=== PATIENT | female | born 1990 | race Caucasian/White ===

== ENCOUNTER 2020-08-12 18:53 | Emergency (ER) | payer OTHER, SELFPAY ==
[2020-08-12 18:57] VITALS: BP 159/69; PULSE 89; RESP 16; TEMP 37.2; O2SAT 98
--- NOTE | 2020-08-12 19:13 | ED.EAR ---
HPI - Ear Problem General Chief complaint: Ear Stated complaint: ears & watery eyes Time Seen by Provider: 08/12/20 19:13 Source: patient History of Present Illness HPI Narrative: Patient presents with right ear pain and itchy watery eyes. Patient states she is scheduled to see an terrazzo tile setter as soon as she is able to. Patient states she is waiting for an appointment with the terrazzo tile setter. Patient states she takes loratadine daily for seasonal allergies. Denies any cough no fever no shortness of breath. MD Complaint: ear pain Related Data Home Medications Medication Instructions Recorded Confirmed amitriptyline 50 mg PO HS 11/13/19 08/12/20 hydroxyzine HCl 25 mg PO QID PRN 11/13/19 08/12/20 cholestyramine (with sugar) 4 g PO BID 08/12/20 08/12/20 dicyclomine 10 mg PO QID 08/12/20 08/12/20 loratadine 10 mg PO DAILY 08/12/20 08/12/20 omeprazole 20 mg PO DAILY 08/12/20 08/12/20 Allergies Allergy/AdvReac Type Severity Reaction Status Date / Time No Known Allergies Allergy Verified 08/12/20 19:06 Review of Systems Review of Systems: Narrative: CONSTITUTIONAL: Denies fever, chills, or sweats. EYES: Denies visual changes, redness, or discharge. ENT: Denies rhinorrhea, congestion, sore throat, or otalgia. Right ear pain and watery eyes CARDIOVASCULAR: Denies chest pain, palpitations, or edema. RESPIRATORY: Denies cough or dyspnea. GASTROINTESTINAL: Denies abdominal pain, nausea, vomiting, or diarrhea. GENITOURINARY: Denies dysuria or hematuria. SKIN: Denies rash or itching. MUSCULOSKELETAL: Denies back pain, joint pain, or myalgia. NEUROLOGIC: Denies headache, numbness, or weakness. PSYCHIATRIC: Denies anxiety or depression. PMFSH Comments At time of signature, agree with nursing past medical, surgical, social and family history. There is no relevant family history pertinent to the presenting complaint Exam Narrative: Exam Narrative: GENERAL: Well-appearing, well-nourished, and in no acute distress. HEAD: Normocephalic, atraumatic. EYES: PERRLA and EOMI. ENT: Nares clear, no rhinorrhea or epistaxis. Mucous membranes moist. Right TM dull with moderate erythremia to canal NECK: Supple. CHEST: Clear to auscultation. No respiratory distress. HEART: Regular rate and rhythm. No murmur heard. Normal peripheral pulses. ABDOMEN: Soft, nontender, nondistended, normal active bowel sounds. EXTREMITIES: Normal range of motion. No edema. SKIN: Warm, dry, no rash. NEURO: No focal deficits. Alert and oriented x3. Coleman Coma Scale Eye Opening: Spontaneous 4 Coleman Coma Scale Motor: Obeys Commands 6 Laisha Coma Scale Verbal: Oriented 5 Coleman Coma Scale Total 15 Course Vital Signs Vital signs: Vital Signs Temperature 37.2 C 08/12/20 18:57 Pulse Rate 89 08/12/20 18:57 Respiratory Rate 16 08/12/20 18:57 Blood Pressure 159/69 H 08/12/20 18:57 Pulse Oximetry 98 08/12/20 18:57 Temperature 37.2 C 08/12/20 18:57 Pulse Rate 89 08/12/20 18:57 Respiratory Rate 16 08/12/20 18:57 Blood Pressure 159/69 H 08/12/20 18:57 Pulse Oximetry 98 08/12/20 18:57 Please [facility] schedule a followup visit with your personal physician for further evaluation and treatment. Including recheck and discussion of your blood pressure. If your symptoms persist, change or worsen significantly before you can contact your personal physician then please, without delay, go to the emergency department for further evaluation Medical Decision Making Differential Diagnosis Differential Diagnosis: Otitis media, seasonal allergies, otitis externa Vital Signs Vital Signs: Vital Signs Temperature 37.2 C 08/12/20 18:57 Pulse Rate 89 08/12/20 18:57 Respiratory Rate 16 08/12/20 18:57 Blood Pressure 159/69 H 08/12/20 18:57 Pulse Oximetry 98 08/12/20 18:57 Temperature 37.2 C 08/12/20 18:57 Pulse Rate 89 08/12/20 18:57 Respiratory Rate 16 08/12/20 18:57 Blood Pressure 159/69 H 08/12/20 18:57 Pulse Oximetr
== END 2020-08-12 19:27 | disposition home or self-care (01) ==
PROVIDERS: Emergency Provider Nurse Practitioner Family; PCP Family Medicine
DX: H66.91 Otitis media, unspecified, right ear (principal); H57.89 Other specified disorders of eye and adnexa; I10 Essential (primary) hypertension; K21.9 Gastro-esophageal reflux disease without esophagitis; F41.9 Anxiety disorder, unspecified
CPT/HCPCS: 99213; G0463

== ENCOUNTER 2023-08-12 16:16 | Emergency (ER) | payer OTHER, SELFPAY ==
[2023-08-12 16:29] VITALS: BP 146/83; PULSE 103; RESP 16; TEMP 36.9; O2SAT 98
--- NOTE | 2023-08-12 16:36 | ED.URI ---
HPI - URI/Sore Throat General Chief Complaint: Upper Respiratory Infection Stated Complaint: respiratory issues Source: patient and RN notes reviewed History of Present Illness HPI Narrative: 32 yo F presents to urgent care with complaints of runny nose, congestion, and cough times 3-4 days. Pt denies any chest pain, SOB, N/V/D, abdominal pain, sore throat, or ALBERTS. Pt has been taking Claritin at home. Related Data Home Medications Medication Instructions Recorded Confirmed amitriptyline 50 mg tablet 50 mg PO HS 11/13/19 08/12/20 hydroxyzine HCl 25 mg tablet 25 mg PO QID PRN Anxiety 11/13/19 08/12/20 cholestyramine (with sugar) 4 gram 4 g PO BID 08/12/20 08/12/20 powder for susp in a packet dicyclomine 10 mg capsule 10 mg PO QID 08/12/20 08/12/20 loratadine 10 mg capsule 10 mg PO DAILY 08/12/20 08/12/20 omeprazole 20 mg tablet,delayed 20 mg PO DAILY 08/12/20 08/12/20 release Allergies Allergy/AdvReac Type Severity Reaction Status Date / Time No Known Allergies Allergy Verified 08/12/20 19:06 Review of Systems Review of Systems: Pertinent positives and pertinent negatives per HPI. PMFSH Comments At the time of my signature, I reviewed and agree with the nursing past medical, surgical, social, and family history. There is no relevant family history pertinent to the patient complaint. Exam Narrative: GENERAL: This is a well-nourished, well-developed patient, in no apparent distress. HEAD: normocephalic, atraumatic. EYES: Sclera clear/white. Vision is grossly intact. EARS: External ears normal, auditory canals clear and without drainage, TMs normal without perforation. Hearing grossly intact. NOSE: External nose normal with no obvious nasal discharge, nares without redness, no rhinorrhea. THROAT: Mucous membranes moist, posterior pharynx clear. NECK: Neck supple, non-tender without lymphadenopathy, masses or thyromegaly. CARDIOVASCULAR: Regular rate and rhythm without murmurs, gallops, or rubs. RESPIRATORY: Clear to auscultation. Breath sounds equal bilaterally. No wheezes, rales, or rhonchi. GASTROINTESTINAL: Abdomen soft, non-tender, nondistended. Bowel sounds are active. No hepato-splenomegaly, or palpable masses. No guarding. SKIN: warm, intact with no suspicious lesions or rash, good texture and turgor. NEURO: awake, alert, and oriented to person, place and time. There were no obvious focal neurologic abnormalities. EXTREMITIES: No clubbing, cyanosis, or edema. No joint tenderness, effusion, or edema noted. BACK: Nontender without deformity or crepitus. No flank tenderness. Course Course Level of Care: Express Care Visit Vital Signs Vital signs: Vital Signs Temperature 98.5 F 08/12/23 16:29 Pulse Rate 103 H 08/12/23 16:29 Respiratory Rate 16 08/12/23 16:29 Blood Pressure 146/83 H 08/12/23 16:29 Pulse Oximetry 98 08/12/23 16:29 Oxygen Delivery Room Air 08/12/23 16:29 Temperature 98.5 F 08/12/23 16:29 Pulse Rate 103 H 08/12/23 16:29 Respiratory Rate 16 08/12/23 16:29 Blood Pressure 146/83 H 08/12/23 16:29 Pulse Oximetry 98 08/12/23 16:29 Oxygen Delivery Room Air 08/12/23 16:29 Reviewed MDM - URI/Sore Throat MDM Narrative Medical decision making narrative: Viral illness may last between 7-12days; antibiotic is NOT recommended at this time. Recommend antihistamine such as Benadryl at night time and Claritin/Zyrtec/Carrie during the day. Increase your Vitamin C intake. Also, recommend symptomatic treatment includes: rest, fluids, increase humidity of the air at home with a humidifier in the bedroom. Recommend Acetaminophen or nonsteroidal anti-inflammatory agents(NSAIDs) as directed in the bottle to reduce fever and/pain/headache. Avoid smoking/second-hand smoke. Limit visits to areas with large crowds. Frequent hand washing or hand multimedia technician is one of the best ways to prevent spread of infection. Differential Diagnosis Differential diagnosis: Like
== END 2023-08-12 17:00 | disposition home or self-care (01) ==
PROVIDERS: Emergency Provider Nurse Practitioner Family; PCP Family Medicine
DX: J06.9 Acute upper respiratory infection, unspecified (principal); I10 Essential (primary) hypertension; K21.9 Gastro-esophageal reflux disease without esophagitis
CPT/HCPCS: 99202; G0463

== ENCOUNTER 2024-05-11 15:28 | Emergency (ER) | payer OTHER, SELFPAY ==
[2024-05-11 15:44] VITALS: BP 137/85; PULSE 87; RESP 16; TEMP 36.9; O2SAT 96
--- NOTE | 2024-05-11 15:53 | ED.EAR ---
HPI - Ear Problem General Chief complaint: Ear Stated complaint: Right Ear Pain Time Seen by Provider: 05/11/24 15:54 Source: patient, RN notes reviewed and old records reviewed Mode of arrival: ambulatory Limitations: no limitations History of Present Illness HPI Narrative: 33 year female presents to [facility] with complaints right ear pain for the past 4 days with no drainage noted from her ear. Patient reports that she has been swimming lately at [place]. Patient reports that she has been having some sinus pressure also. Patient reports that she has no drainage from her ear but has also had some dizziness and nausea with the ear pain.Patient reports that she has been taking Claritin and also some Tylenol and Ibuprofen for her discomfort. MD Complaint: ear pain Location: right ear Duration: constant Severity: moderate Discharge from ear: Reports no Treatment prior to arrival: oral analgesic and other (Claritin) Related Data Allergies Allergy/AdvReac Type Severity Reaction Status Date / Time No Known Allergies Allergy Verified 08/12/20 19:06 Review of Systems Review of Systems: CONSTITUTIONAL: Denies malaise, chills, sweats, or fever. EYES: Denies visual changes, redness, or discharge. ENT: Reports rhinorrhea, congestion,no sinus pain,positive for right otalgia and no sore throat. CARDIOVASCULAR: Denies chest pain, palpitations, or edema. RESPIRATORY: Reports no cough.? Denies dyspnea. GASTROINTESTINAL: Denies abdominal pain, occasional nausea, no vomiting, diarrhea SKIN: Denies rash or itching. MUSCULOSKELETAL: Denies myalgia. NEUROLOGIC: Denies headache. states some feeling of dizziness All systems reviewed & are unremarkable except as noted in HPI and below PMFSH Past Medical History Medical History Anxiety Fracture of right wrist GERD (gastroesophageal reflux disease) Hypertension UTI (urinary tract infection) Surgical History Surgical History History of placement of ear tubes Social History Social History Smoking status: Never smoker Alcohol intake: unknown Substance use type: does not use Gender identity (if verbalized by the patient): Female Comments At time of signature, agree with nursing past medical, surgical, social and family history. There is no relevant family history pertinent to the presenting complaint Exam Narrative: GENERAL: Well-appearing, well-nourished,obese and in no acute distress. HEAD: Normocephalic EYES: PERRLA, conjunctivae clear ENT: Nares clear, turbinates edematous and erythematous, clear discharge. Mucous membranes moist. TM pearly davis with dull light reflex bilaterally;Right ear canal red and excoriated and painful with tragal tenderness, Left Ear canal normal. Oropharynx erythematous without lesions. Tonsils not enlarged and without exudate, no drooling, no hoarseness, no trismus, uvula midline.some post nasal discharge. NECK: Supple. No lymphadenopathy CHEST: Clear to auscultation, breath sounds equal. No wheezing, rhonchi, rales, or stridor. No respiratory distress, speaks in full sentences.no cough,SAO2 96% on room air HEART: Regular rate and rhythm. No murmur heard. SKIN: Warm, dry, no rash. NEURO: Alert and oriented x3. PSYCH: Normal mood and affect Course Course Emergency Course: Patient is aware of diagnosis, understands and agrees to treatment plan.? Anticipatory guidance given.? Patient agrees to follow-up as directed and is aware of reasons to seek care at the emergency department. Portions of this record may have been created with voice recognition software Level of Care: Express Care Visit Vital Signs Vital signs: Vital Signs Temperature 36.9 C 05/11/24 15:44 Pulse Rate 87 05/11/24 15:44 Respiratory Rate 16 05/11/24 15:44
== END 2024-05-11 16:20 | disposition home or self-care (01) ==
PROVIDERS: Emergency Provider Registered Nurse
DX: H60.311 Diffuse otitis externa, right ear (principal); K21.9 Gastro-esophageal reflux disease without esophagitis; I10 Essential (primary) hypertension
CPT/HCPCS: 99213; G0463

== ENCOUNTER 2025-08-30 10:22 | Emergency (ER) | payer OTHER, SELFPAY ==
[2025-08-30 10:38] VITALS: BP 145/64; PULSE 75; RESP 16; TEMP 36.3; O2SAT 99
--- NOTE | 2025-08-30 10:59 | ED.URI ---
HPI - URI/Sore Throat General Chief Complaint: Upper Respiratory Infection Stated Complaint: Sinus Problem/Cough Time Seen by Provider: 08/30/25 11:00 Source: patient and RN notes reviewed Mode of arrival: ambulatory Limitations: no limitations History of Present Illness HPI Narrative: It is 34-year-old female presents concern for 4 day history of sinus drainage, cough, sneezing, general malaise. She reports she has been taking [id number] medication without relief. MD elicited complaint: cough and nasal congestion Related Data Home Medications ?Medication ?Instructions ?Recorded ?Confirmed ?Last Taken ?Type azelastine 137 mcg (0.1 %) nasal intranasal 08/30/25 Unknown History spray dulaglutide 1.5 mg/0.5 mL mg subcut 08/30/25 Unknown History subcutaneous pen injector (Trulicity) fluoxetine 20 mg capsule mg 08/30/25 Unknown History metformin 500 mg tablet,extended mg PO 08/30/25 Unknown History release 24 hr norgestimate 0.25 mg-ethinyl tablet 08/30/25 Unknown History estradiol 0.035 mg tablet (Lesvia) quetiapine 25 mg tablet mg 08/30/25 Unknown History Allergies Allergy/AdvReac Type Severity Reaction Status Date / Time No Known Allergies Allergy Verified 08/30/25 10:34 Review of Systems Review of Systems: CONSTITUTIONAL: Reports malaise, chills, sweats EYES: Denies visual changes, redness, or discharge. ENT: Reports rhinorrhea, congestion, sneezing, otalgia CARDIOVASCULAR: Denies chest pain, palpitations, or edema. RESPIRATORY: Reports cough. Denies dyspnea. GASTROINTESTINAL: Denies abdominal pain, nausea, vomiting, diarrhea SKIN: Denies rash or itching. MUSCULOSKELETAL: Denies myalgia. NEUROLOGIC: Denies headache. All systems reviewed & are unremarkable except as noted in HPI and below PMFSH Past Medical History Medical History Anxiety Fracture of right wrist GERD (gastroesophageal reflux disease) Hypertension UTI (urinary tract infection) Surgical History Surgical History History of placement of ear tubes Social History Social History Smoking status: Never smoker Alcohol intake: unknown Substance use type: does not use Gender identity (if verbalized by the patient): Female Comments At time of signature, agree with nursing past medical, surgical, social and family history. There is no relevant family history pertinent to the presenting complaint Exam Narrative: GENERAL: Well-appearing, well-nourished, and in no acute distress. HEAD: Normocephalic EYES: PERRLA, conjunctivae clear ENT: Nares clear, turbinates edematous and erythematous, clear discharge. Mucous membranes moist. TM pearly davis with dull light reflex bilaterally; no tragal tenderness. Oropharynx not erythematous without lesions. Tonsils not enlarged and without exudate, no drooling, no hoarseness, no trismus, uvula midline. NECK: Supple. No lymphadenopathy CHEST: Clear to auscultation, breath sounds equal. No wheezing, rhonchi, rales, or stridor. No respiratory distress, speaks in full sentences. HEART: Regular rate and rhythm. No murmur heard. SKIN: Warm, dry, no rash. NEURO: Alert and oriented x3. PSYCH: Normal mood and affect Course Course Emergency Course: Patient is aware of diagnosis, understands and agrees to treatment plan. Anticipatory guidance given. Patient agrees to follow-up as directed and is aware of reasons to seek care at the emergency department. Portions of this record may have been created with voice recognition software Level of Care: Express Care Visit Vital Signs Vital signs: Vital Signs Temperature 97.4 F L 08/30/25 10:38 Pulse Rate 75 08/30/25 10:38 Respiratory Rate 16 08/30/25 10:38 Blood Pressure 145/64 H 08/30/25 10:38 Pulse Oximetry 99 08/30/25 10:38 Oxygen Delivery Room Air 08/30/25 10:38 Temperature 97.4 F L 08/30/25 10:38 Pulse Rate 75 08/30/25 10:38 Respiratory Rate 16 08/30/25 10:38 Blood Pressure 145/64 H 08/30/25 10:38 Pulse Oximetry 99 08/30/25 10:38 Oxygen Delivery Room Air 08/30/25 10:38 Reviewed. MDM - URI/Sore Throat MDM Narrative Medical decision making narrative: Differential diagnosis considered: Pruitt virus, strep pharyngitis, allergic rhinitis, upper respiratory tract infection, sinusitis, rhinosinusitis, nasopharyngitis. viral pharyngitis, otitis media, otitis externa, pneumonia, bronchitis, viral cough syndrome, viral syndrome, and influenza. Exam findings show no acute concerns or changes; patient is non-toxic appearing and is in no distress. Patient is appropriate for outpatient treatment and follow-up. Lab Data Attestation: I reviewed the patient's lab results. Critical Care Time Critical Care Time Critical Care Time: No Discharge Plan Discharge Clinical Impression: Upper respiratory infection Patient Disposition: Home Condition: Stable Instructions: Upper Respiratory Infection (ED) Additional Instructions: Viral illness may last between 7-21 days; antibiotics do not cure viral illness and are NOT recommended at this time. Recommend antihistamine such as Benadryl at night time and Zyrtec or Carrie during the day Cough syrup may cause drowsiness; avoid driving or take it at night time. Also, recommend symptomatic treatment includes: rest, fluids, and increase humidity of the air at home. Recommend Acetaminophen as directed on the bottle to reduce fever, pain, headache. Avoid smoking/second-hand smoke. Please schedule a follow-up visit with your personal physician for further evaluation and treatment within 3-5days. Including recheck and discussion of your blood pressure. If your symptoms persist, change or worsen significantly before you can contact your personal physician then please, without delay, go to the emergency department for further evaluation. Patient Language: South Sudanese Prescriptions: New promethazine-DM 6.25-15 mg/5 mL syrup 5 ml PO Q4-6H PRN (Reason: cough) Qty: 120 0RF methylprednisolone [Medrol (Milton)] 4 mg tablets,dose pack See Rx Instructions .ROUTE .COMPLEX Qty: 21 0RF Rx Instructions: orally per package directions ipratropium bromide 21 mcg (0.03 %) spray,non-aerosol 2 spray NASAL TID PRN (Reason: nasal drainage) Qty: 30 0RF Rx Instructions: administer into each nostril No Action quetiapine 25 mg tablet norgestimate-ethinyl estradiol [Lesvia] 0.25-0.035 mg tablet azelastine 137 mcg (0.1 %) spray,non-aerosol INTRANASAL fluoxetine 20 mg capsule metformin 500 mg tablet extended release 24 hr PO Trulicity 1.5 mg/0.5 mL pen injector SUBCUT Follow-up/Referrals: UNKNOWN,DOCTOR [Primary Care Provider] Stand Alone Forms: Work/School Release IP Time of Disposition: 11:08
--- OUTSIDE RECORDS SUMMARY | 2025-08-30 11:00 | XMS_ITS | Clinical Summary ---
Author Organization [facility] Address [address] [place] [address] Care Team Providers Care Hospitalist Name Role Phone Leighton Patel DO Primary Care Provider [phone] Rosalba Atwood MD Unavailable [phone] Source Comments [facility],non-owned Affiliates and Associated Physician Practices is amultiple site organization consisting of ambulatory clinics and hospital sitesin [place], [place], [place] and [place]. This disclosure is being madepursuant to the Care Everywhere program and may not contain all information available regarding this patient. Last updated 18.[facility] Allergies No known active allergies Medications * This document contains information received from the source organization and may not represent a complete record from that organization. * Be aware that medications may not be up to date on this document. Alwaysverify current medications with the patient. 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 Gender Identity Not on file Sexual Orientation Not on file Last Filed Vital Signs Vital Sign Reading Time Taken Comments Blood Pressure 128/80 10/10/2017 8:53 AM PLANT OPERATIONS ENGINEER Pulse 91 10/10/2017 8:53 AM PLANT OPERATIONS ENGINEER Temperature 36.7 C (98 F) 10/10/2017 8:53 AM PLANT OPERATIONS ENGINEER Respiratory Rate 18 11/26/2016 1:42 PM PLANT OPERATIONS ENGINEER Oxygen Saturation 98% 10/10/2017 8:53 AM PLANT OPERATIONS ENGINEER Inhaled Oxygen Concentration - - Weight 147.4 kg (325 lb) 10/10/2017 8:53 AM PLANT OPERATIONS ENGINEER Height 175.3 cm (5' 9) 10/10/2017 8:53 AM PLANT OPERATIONS ENGINEER Body Mass Index 47.99 10/10/2017 8:53 AM PLANT OPERATIONS ENGINEER Plan of Treatment Health Maintenance Due Date Last Done Comments HIV SCREENING 2004 HEPATITIS C SCREENING 12/16/2007 DTAP/TDAP/TD VACCINES (1 - Tdap) 2008 HEPATITIS B VACCINE (1 of 3 - 19+ 3-dose series) 2008 PAP SMEAR 2010 HPV VACCINE (1 - 3-dose SCDM series) 2016 DEPRESSION SCREENING 12/02/2024 COVID-19 VACCINE (1 - 2023-2 5 season) 2025 INFLUENZA VACCINE (#1) 2025 ZOSTER VACCINE (1 of 2) 2039 HIB VACCINE Aged Out No longer eligi ble based on patient's age to complete this topic MENINGOCOCCAL (Group B) VACC INE SHARED DECISION-MAKING Aged Out No longer eligibl e based on patient's age to complete this topic MENINGOCOCCAL GROUPS A/C/Y/W VACCINE Aged Out No longer eligible b ased on patient's age to complete this topic PNEUMOCOCCAL VACCINE Aged Out No long er eligible based on patient's age to complete this topic Insurance [facility] Care Teams Hospitalist Relationship Specialty Start Date End Date Leighton Patel DO [address] [place] [address] PCP - General 09/27/22 Rosalba Atwood MD [address] [place] [address] Pediatrics 09/27/22
--- OUTSIDE RECORDS SUMMARY | 2025-08-30 11:00 | XMS_ITS | Encounter Summary ---
Author Organization [facility] Healthcare Address [address] [place] [address] Care Team Providers Care Medical Aide Name Role Phone Amelia Andrews DO Primary Care Provider [phone] Sandra Chavarria AUTOMOTIVE UPHOLSTERER Unavailable [phone] Adalgisa De La Torre MD Unavailable [phone] Amelia Andrews DO Primary Care Provider [phone] August Thomas MD Primary Care Provider Jonnie Martins MD PhD Unavailable Claudine Mandujano MD Primary Care Provider [phone] Encounter Details Date Type Department Care Team (Late st Contact Info) Description 06/17/2020 Telephone [facility] [address] [place], [place] [id number] Adalgisa De La Torre MD [address] [place], [place] [id number] Social History Tobacco Use Types Packs/Day Years Used Date Smoking Tobacco: Every Day Cigarettes E-cigarettes Smokeless Tobacco: Never Alcohol Use Standard Drinks/Week Comments Yes 0 (1 standard drink = 0.6 oz pur e alcohol) AUDIT-C Answer Date Recorded Frequency of Alcohol Consumption Monthly or less 12/14/2019 Average Number of Drinks 5 or 6 020 Frequency of Binge Drinking Not on file 12/02 PHQ-2 Answer Date Recorded PHQ-2 Total Score (If total score is 3 or more points, staff should administer the PHQ-9) 0 04/14/2020 Comments No Sex and Gender Information Value Date Recorded Sex Assigned at Not on file Legal Sex Female 5:42 PM REHEAT FURNACE OPERATOR Gender Identity Not on file Sexual Orientation Not on file documented as of this encounter Plan of Treatment Not on file documented as of this encounter Visit Diagnoses Not on filedocumented in this encounter Additional Health Concerns Infection Onset Date Last Indicated Resolved Time COVID: Suspected 12/07/2021 12/07/2021 12/07/2021 2:27 PM REHEAT FURNACE OPERATOR COVID: Suspected 11/16/2022 11/16/2022 11/16/2022 6:17 PM REHEAT FURNACE OPERATOR COVID: Suspected 11/20/2022 11/20/2022 11/20/2022 11:33 AM REHEAT FURNACE OPERATOR COVID: Suspected 12/03/2022 12/03/2022 12/03/2022 10:27 PM REHEAT FURNACE OPERATOR COVID19 12/03/2022 12/03/2022 12/13/2022 3:05 AM REHEAT FURNACE OPERATOR COVID: Recovered Comment:Added based on recent COVID infection. 12/13/2022 12/18/2022 03/13/2023 3:06 AM C DT COVID: Suspected 10/16/2023 10/16/2023 10/16/2023 9:32 AM REHEAT FURNACE OPERATOR COVID: Suspected 03/12/2024 03/12/2024 03/12/2024 11:40 AM CDT documented as of this encounter Care Teams Medical Aide Relationship Specialty Start Date End Date Amelia Andrews DO PCP - General Family Medicine 12/14/19 07/30/23 Ameila Andrews DO [address] [facility] [address] [place] [id number] PCP - General Family Medicine 07/31/23 03/25/24 August Thomas MD [address] [facility] [place] [address] PCP - General Family Medicine 03/26/24 06/28/25 Claudine Mandujano MD [address] [place] [address] PCP - General Family Medicine 06/29/25 Sandra Chavarria, SHAYY [address] [place] [address] [address] [place] [id number] Nurse Practitioner Nurse Practitioner 12/14/19 Adalgisa De La Torre MD [address] [place] [address] [address] [place] [id number] Surgeon Orthopedic Surgery 04/14/20 Jonnie Martins MD PhD [address] [place] [address] Consulting Physician Allergy and Immunology 03/26/24 documented as of this encounter
--- OUTSIDE RECORDS SUMMARY | 2025-08-30 11:01 | XMS_ITS | Clinical Summary ---
Author Organization [facility] Address [address] [place] [address] Phone Care Team Providers Care Eyeglass Lens Generator Name Role Phone Sandra Chavarria APRN, COATER OPERATOR INSULATION BOARD Unavailable [phone] Amelia Andrews DO Primary Care Provider [phone] Allergies Active Allergy Reactions Criticality Noted Date Comments Tuberculin Purified Protein Derivative Rash Medium 12/13/2016 Medications Amoxicillin 500 MG Tablet Take 500 mg by mouth 3 times daily. Active albuterol 108 (90 Base) MCG/ACT Aerosol Solution take 2 Puffs by inhalation every 6 hours as needed for Wheezing or Cough. 6.7 g 3 Active azelastine (ASTELIN) 0.1 % Solution 1 [place] by Nasal route. 4 Active Trulicity 3 MG/0.5ML Solution Auto-injector inject 0.5 ml (3 mg total) under the skin every 7 days Active FLUoxetine (PROzac) 20 MG Capsule Take 20 mg by mouth. 4 Active fluticasone (FLONASE) 50 MCG/ACT Suspension ADMINISTER 1 SPRAY INTO EACH NOSTRIL 2 TIMES A DAY. 4 Active meloxicam (MOBIC) 15 MG Tablet Take 1 Tablet by mouth daily. Take with food. 5 Active metFORMIN (GLUCOPHAGE-XR) 500 MG TABLET SR 24 HR take 1 tablet by mouth every day with breakfast Active Lesvia 0.25-35 MG-MCG Tablet Take 1 Tablet by mouth daily. Active omeprazole (PriLOSEC) 40 MG CAPSULE DELAYED RELEASE Take 40 mg by mouth daily. Active QUEtiapine (SEROquel) 25 MG Tablet Take 25 mg by mouth. Active Active Problems Problem Noted Date Diagnosed Date High risk medication use 09/03/2017 IBS (irritable bowel syndrome) Depression Anxiety Obesity Immunizations Immunization Administration Dates Next Due DTAP VACCINE 03/24/1990 Hepatitis B Vaccine, Pediatric/adolescent 1997 Hepatitis B Vaccine,unspecified Formulation 02/01,03/09/1999 Inactivated Polio Vaccine 04/23/1993,03/24/1990 Influenza Vaccine, Quadrivalent, PF 09/12/2021,0 08/28/2018,09/12/2016 Influenza Vaccine,unspecified Formulation 2018,11/05/2018,10/21/2017 Influenza, Injectable, Quadrivalent 09/01/2015 MMR Vaccine 05/11/1994,08/21/1993 PUR FLU 3+ YRS PRES FREE QUAD IM 09/12/2016 TB Skin Test 05/26/2019 TDAP Vaccine 03/22/2015 Tuberculin Skin Test; Purifi ed Protein Derivative Solutiol 05/26/2019,05/08/2019 Family History Medical History Relation Name Comments Diabetes Father Cardiomyopathy Mother Diabetes Mother High Cholesterol Mother Asthma Sister OCD Sister Seizures Sister Relation Name Status Comments Father Alive Mother Alive Sister Alive Social History Tobacco Use Types Packs/Day Years Used Date Smoking Tobacco: Never Smokeless Tobacco: Never Tobacco Cessation:Counseling Given: No Alcohol Use Standard Drinks/Week Comments No 0 (1 standard drink = 0.6 oz pur e alcohol) PHQ-2 Answer Date Recorded PHQ-2 Score 9 10/06/2019 Sexually Active Control Partners Comments Yes Comments No Sex and Gender Information Value Date Recorded Sex Assigned at Not on file Legal Sex Female 8:45 PM CDT Gender Identity Not on file Sexual Orientation Not on file Last Filed Vital Signs Vital Sign Reading Time Taken Comments Blood Pressure 126/82 01/12/2025 4:30 PM CHEMICAL MAKER Pulse 87 01/12/2025 4:30 PM CHEMICAL MAKER Temperature 36.4 C (97.5 F) 01/12/2025 4:30 PM CHEMICAL MAKER Respiratory Rate 18 01/12/2025 4:30 PM CHEMICAL MAKER Oxygen Saturation 97% 01/12/2025 4:30 PM CHEMICAL MAKER Inhaled Oxygen Concentration - - Weight 179.2 kg (395 lb) 10/31/2023 11:53 AM CHEMICAL MAKER Height 175.3 cm (5' 9) 10/31/2023 11:53 AM CHEMICAL MAKER Body Mass Index 58.33 10/31/2023 11:53 AM CHEMICAL MAKER Plan of Treatment Health Maintenance Due Date Last Done Comments Hepatitis C Virus (HCV) Screening 1989 Human Papillomavirus (HPV) Immunization (1 - 3-dose SCDM series) 2016 Pap Smear 04/26/2019 04/26/2016 Cervical Cancer Screening (CCS) 2019 HPV/Cotest 2019 Td Immunization Every 10 Years (Adults With 1 Tdap) 03/22/2025 03/22/2015 Influenza Immunization (#1) 2025 12/0 06/2022, 09/12/2021, 09/21/2019, Additional history exists SARS-COV-2 Immunization ( season) 2025 04/19/2022, 05/06/2021, 04/14/2021 Respiratory Syncytial Virus (RSV) Immunization (Adult) (1 - 1-dose 75+ series) 2064 Hepatitis B Immunization Completed 003, 03/09/1999, 09/20/1998 Meningococcal Immunization (ACWY) Aged Out No longer eligible based on patient's age to complete this topic Pneumococcal Immunization Combined Aged Out No longer eligible based on patient's age to complete this topic Rotavirus Immunization Aged Out No lo nger eligible based on patient's age to complete this topic Procedures Procedure Name Priority Date/Time Associated Diagnosis Comments PATHOLOGY CYTOLOGY BODY SHOP MECHANIC Routine 04/26/2016 from Last 3 Months or Most Recently Relevant to Health Maintenance Results * PATHOLOGY CYTOLOGY BODY SHOP MECHANIC (04/26/2016) Specimen of unknown material (specimen) us Not On File Provider PATHOLOGY/CYTOLOGY ORDERABL ES Final Result from Last 3 Months or Most Recently Relevant to Health Maintenance Insurance [employer] [place] Care Teams Eyeglass Lens Generator Relationship Specialty Start Date End Date Amelia Andrews DO [address] [facility] [address] [place] [address] PCP - General Family Medicine 10/31/23 Sandra Chavarria APRN, COATER OPERATOR INSULATION BOARD [address] [facility] [address] [place] [address] Consulting Physician Family Medicine 04/21/19
--- OUTSIDE RECORDS SUMMARY | 2025-08-30 11:01 | XMS_ITS | Clinical Summary ---
Author Organization [facility] Address [address] [place] [address] Care Team Providers Care Mathematician Name Role Phone Sandra Chavarria NP Unavailable [phone] Adalgisa De La Torre MD Unavailable [phone] Jonnie Martins MD PhD Unavailable Claudine Mandujano MD Primary Care Provider [phone] Allergies Active Allergy Reactions Criticality Noted Date Comments Tuberculin, Purified Protein Derivative Rash Medium 07/02/2024 Medications sertraline (ZOLOFT) 50 mg tablet Take 1 tablet (50 mg total) by mouth daily 30 tablet 3 Active QUEtiapine (SEROquel) 25 mg tablet Take 1 tablet (25 mg total) by mouth nightly 60 tablet 3 Active Lesvia 0.25-35 mg-mcg per tablet Take 1 tablet by mouth daily 4 Active blood glucose diagnostic stripIndication s:type 2 diabetes mellitus Please use 2 times daily to check BG measurements with compatible glucometer. 100 each 3 4 Active lancets miscIndications :Pre-diabetes Check blood sugar 2 times a day - one before breakfast and one at bedtime 200 each 2 4 Active blood-glucose meter miscIndications :Pre-diabetes Use daily or as directed for monitoring of diabetes. 1 each 4 Active metFORMIN XR (GLUCOPHAGE XR) 500 mg 24 hr tabletIndicatio ns:Controlled type 2 diabetes mellitus without complication, without long-term current use of insulin Take 1 tablet (500 mg total) by mouth daily with breakfast 90 tablet 5 Active azelastine (ASTELIN) 137 mcg (0.1 %) nasal sprayIndication s:Non-seasonal allergic rhinitis, unspecified trigger Administer 1 spray into each nostril 2 (two) times a day Use in each nostril as directed 30 mL 5 Active fluticasone propionate (FLONASE) 50 mcg/actuation nasal sprayIndication s:Non-seasonal allergic rhinitis, unspecified trigger Administer 2 sprays into each nostril daily 16 mL 5 Active omeprazole (PriLOSEC) 40 mg capsuleIndicati ons:Gastroesoph ageal reflux disease, unspecified whether esophagitis present Take 1 capsule (40 mg total) by mouth daily 90 capsule 5 Active furosemide (LASIX) 20 mg tablet Take 1 tablet (20 mg total) by mouth daily Active cholecalciferol (VITAMIN D-3) 400 unit capsule Take 2 tablet/capsule (800 Units total) by mouth daily 180 tablet/capsu le 5 Active dulaglutide (Trulicity) 3 mg/0.5 mL pen injectorIndicat ions:Morbid obesity with BMI of 50.0-59.9, adult (HCC) Inject 0.5 mL (3 mg total) under the skin every 7 days 6 mL 3 5 Active Active Problems Problem Noted Date Diagnosed Date Acute right-sided low back pain with right-sided sciatica 11/04/2024 Assessment & Plan (11/17/2024 8:52 PM OPERATIONS RESEARCH DIRECTOR): -Acute, not significantly improved -Patient was initially seen in office on 11/04 for acute low back pain due to lifting a couch -Patient was treated with Medrol Dosepak, Tylenol -Patient will meet with pain management and complete physical therapy for ongoing low back pain -Continue current treatment plan Assessment & Plan (11/04/2024 2:53 PM OPERATIONS RESEARCH DIRECTOR): -Acute, new -Lumbar spine x-ray ordered today -Start on Medrol Dosepak as directed. Advised patient this may cause irritability, hunger, and insomnia. Advised patient to avoid taking NSAIDs with this medication -May take [id number] Tylenol as needed for pain -Recommend gentle stretching exercises -If not improving, may need referral to physical therapy or may need to try a muscle relaxant -follow up as scheduled in 2 weeks or sooner as needed Numbness and tingling of right leg 11/04/2024 Assessment & Plan (11/04/2024 2:53 PM OPERATIONS RESEARCH DIRECTOR): -Acute, new -Lumbar spine x-ray ordered today -Start on Medrol Dosepak as directed. Advised patient this may cause irritability, hunger, and insomnia. Advised patient to avoid taking NSAIDs with this medication -May take [id number] Tylenol as needed for pain -Recommend gentle stretching exercises -If not improving, may need referral to physical therapy or may need to try a muscle relaxant -follow up as scheduled in 2 weeks or sooner as needed Excess body and facial hair 07/02/2024 Candidiasis of vagina 07/02/2024 Vaginal odor 07/02/2024 Elevated ALT measurement 04/11/2024 Assessment & Plan (04/11/2024 10:41 PM CDT): new, mild noted on CMP, recommend recheck in 1 months and if still elevated will obtain US liver, order placed for repeat LFT Lab Results Component Value Date ALT 57 (H) 04/08/2024 AST 43 04/08/2024 ALKPHOS 57 04/08/2024 BILITOT 0.6 04/08/2024 PCOS (polycystic ovarian syndrome) 03/26/2024 Assessment & Plan (03/26/2024 2:48 PM CDT): - chronic condition - follows with OBGYN - reports since teenage years - has facial hair, irregular cycles, obesity, pre-diabetes - was on control but not anymore, was on Nexplanon Lab Results Component Value Date HGBA1C 6.1 (H) 03/05/2023 Bipolar disorder, in partial remission, most recent episode mixed 03/26/2024 Assessment & Plan (08/23/2024 11:55 PM CDT): - Chronic condition, controlled with persistent symptoms - hx of anxiety, depression, PTSD and bipolar disorder - was on Sertraline 50 gm daily, Seroquel 25 mg nightly - has past hx of Fluoxetine 20 mg daily - Follows and managed by psychiatry - via [facility], recommend reestablishing care for mamagement - continue current management per psychiatry Assessment & Plan (07/03/2024 6:56 AM CDT): -chronic, not at goal -patient reports she has been to be taking sertraline 50 mg daily, Seroquel 25 mg nightly but she has not taken his medications in quite some time -previously unable to tolerate fluoxetine -patient denies any thoughts of harming herself or others -patient reports she would like to restart her medications, for reports if PCP office refills them, it will cause difficulties with this psychiatrist at [facility] -encourage patient to call [facility] today to set up an appointment -continue current treatment plan Assessment & Plan (03/26/2024 2:53 PM CDT): - Chronic condition, controlled with persistent symptoms - hx of anxiety, depression, PTSD and bipolar disorder - was on Sertraline 50 gm daily, Seroquel 25 mg nightly - she states she had to stop it at some time but plans to continue using it - has past hx of Fluoxetine 20 mg daily - Follows and managed by psychiatry - via [facility] - continue current management per psychiatry Preventative health care 03/26/2024 Assessment & Plan (04/11/2024 10:41 PM CDT): - New or chronic worsening conditions: elevated ALT measurement - Mental health: no significant psychiatric/mental health conditions affecting her day to day functioning - Dental health: Recommend regular dental care and cleaning. Discussed importance of regular tooth brushing, flossing, and dental visits. - Nutrition: Recommend moderation in sodium/caffeine intake, saturated fat and cholesterol, caloric balance, sufficient intake of fresh fruits, vegetables - Exercise: Recommend to exercise at least 30 minutes moderate to vigorous exercise most days of the week. (minimum 150 minutes weekly) - Immunizations: Age and sex appropriate immunizations reviewed and offered - Cervical Cancer screening: Up to date - Breast Cancer screening: not indicated - Colon cancer screening: not indicated - Lung cancer screening: not indicated - Bone desnity/osteoporosis screening:not indicated - control: none, came off nexplanon Chronic dental pain 08/11/2023 Assessment & Plan (04/11/2024 10:38 PM CDT): - has abnormal dentition - seen by another provider back in 08/2023 for chronic dental pain - she has been on meloxicam 15 mg in the past from another provider - she has an appointment with dental provider tomorrow Assessment & Plan (08/11/2023 5:30 PM CDT): I told her that I could not give her any pain medication. We do not treat chronic pain and we can not treat chronic dental pain especially this which is cover up the underlying problem. I did give her meloxicam 15 mg to take p.r.n. for when she has pain but she still needs to get the infection take care of if that is causing increased pain. She should continue to seek out dental care to help alleviate the underlying problem Seborrheic dermatitis 11/07/2022 GERD (gastroesophageal reflux disease) Assessment & Plan (03/31/2024 2:53 PM CDT): Clinically improved, continue current prescription medications. Assessment & Plan (12/30/2022 9:32 AM OPERATIONS RESEARCH DIRECTOR): Encouraged use of omeprazole. Assessment & Plan (08/31/2020 1:57 PM CDT): Pt is taking omeprazole 20mg before bedtime. She gets burning in the back of her throat and says still occurring almost daily. She also sometimes feels there is a lump in her throat. Will increase omeprazole to 40mg daily. She was instructed to follow GERD diet and given handout on this. Pt admits to drinking soda and eating fast food often. She says she wants to lose weight but continues to gain. We discussed importance of weight loss to help control GERD as well. We will also give her famotidine 40mg to use prn for nighttime symptoms. If no improvement, I discussed possibility that we may need to do EGD. Pt verbalized understanding. Generalized anxiety disorder 12/14/2019 Assessment & Plan (08/23/2024 11:55 PM CDT): - Chronic condition, controlled with persistent symptoms - hx of anxiety, depression, PTSD and bipolar disorder - was on Sertraline 50 gm daily, Seroquel 25 mg nightly - has past hx of Fluoxetine 20 mg daily - Follows and managed by psychiatry - via [facility], recommend reestablishing care for mamagement - continue current management per psychiatry Assessment & Plan (07/03/2024 6:55 AM CDT): -chronic, not at goal -patient reports she has been to be taking sertraline 50 mg daily, Seroquel 25 mg nightly but she has not taken his medications in quite some time -previously unable to tolerate fluoxetine -patient denies any thoughts of harming herself or others -patient reports she would like to restart her medications, for reports if PCP office refills them, it will cause difficulties with this psychiatrist at [facility] -encourage patient to call [facility] today to set up an appointment -continue current treatment plan Assessment & Plan (03/26/2024 2:53 PM CDT): - Chronic condition, controlled with persistent symptoms - hx of anxiety, depression, PTSD and bipolar disorder - was on Sertraline 50 gm daily, Seroquel 25 mg nightly - she states she had to stop it at some time but plans to continue using it - has past hx of Fluoxetine 20 mg daily - Follows and managed by psychiatry - via [facility] - continue current management per psychiatry Assessment & Plan (02/06/2023 1:37 PM OPERATIONS RESEARCH DIRECTOR): Continue current rpescription Will need refills since her psychiatrist went on vacation and didn't fill her meds She is unsure what she takes or doses Will call over to pharmacy to find out and get refills taken care off until her psychiatrist comes back Assessment & Plan (11/07/2022 12:49 PM OPERATIONS RESEARCH DIRECTOR): Clinically improved, continue current prescription medications. Assessment & Plan (11/22/2021 2:41 PM OPERATIONS RESEARCH DIRECTOR): Stable. Cont. Current prescription medications. Assessment & Plan (12/14/2019 1:35 PM OPERATIONS RESEARCH DIRECTOR): New start sertraline. Encouraged f/u at [facility]. 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 12/14/2019 Assessment & Plan (08/23/2024 11:55 PM CDT): - Chronic condition, controlled with persistent symptoms - hx of anxiety, depression, PTSD and bipolar disorder - was on Sertraline 50 gm daily, Seroquel 25 mg nightly - has past hx of Fluoxetine 20 mg daily - Follows and managed by psychiatry - via [facility], recommend reestablishing care for mamagement - continue current management per psychiatry Assessment & Plan (07/03/2024 6:55 AM CDT): -chronic, not at goal -patient reports she has been to be taking sertraline 50 mg daily, Seroquel 25 mg nightly but she has not taken his medications in quite some time -previously unable to tolerate fluoxetine -patient denies any thoughts of harming herself or others -patient reports she would like to restart her medications, for reports if PCP office refills them, it will cause difficulties with this psychiatrist at [facility] -encourage patient to call [facility] today to set up an appointment -continue current treatment plan Assessment & Plan (03/26/2024 2:53 PM CDT): - Chronic condition, controlled with persistent symptoms - hx of anxiety, depression, PTSD and bipolar disorder - was on Sertraline 50 gm daily, Seroquel 25 mg nightly - she states she had to stop it at some time but plans to continue using it - has past hx of Fluoxetine 20 mg daily - Follows and managed by psychiatry - via [facility] - continue current management per psychiatry Assessment & Plan (02/06/2023 1:37 PM OPERATIONS RESEARCH DIRECTOR): Continue current rpescription Will need refills since her psychiatrist went on vacation and didn't fill her meds She is unsure what she takes or doses Will call over to pharmacy to find out and get refills taken care off until her psychiatrist comes back Assessment & Plan (11/22/2021 2:41 PM OPERATIONS RESEARCH DIRECTOR): Clinically improved, continue current prescription medications. Assessment & Plan (12/14/2019 1:35 PM OPERATIONS RESEARCH DIRECTOR): New start sertraline. Encouraged f/u at [facility]. Irritable bowel syndrome wit h both constipation and diarrhea 12/14/2019 Assessment & Plan (04/11/2024 10:36 PM CDT): - chronic condition, not at goal, persistent - since early 20s age - has been evaluated by GI at [facility] for this - has not followed up with GI yet - reports gas, bloating, diarrhea, abdominal pain and cramping - chart review shows - she was taking dicyclomine BID for abdominal cramping which it did help and thinks caused more diarrhea and was on cholestyramine once daily --> states it did not do anything for her and is now using CBD oil which has helped her abdominal cramps - she had Colonoscopy scheduled 12/2022 but did not do it due to fear of doing it - has know mental health issues - not on any medication currently - Last seen by GI 10/2022 , plans to reach out to GI again Assessment & Plan (08/31/2020 2:22 PM CDT): Pt is taking dicyclomine BID for abdominal cramping and cholestyramine once daily. She is doing well on this regimen. Her abdominal pain is minimal and only occurs occasionally and she is having one normal BM daily. No urgency. Continue this regimen. Assessment & Plan (06/29/2020 2:49 PM CDT): Pt is doing better on dicyclomine 10mg. She was instructed to use TID prior to meals; however, only taking twice daily. She says the cramping is better but still having watery diarrhea and urgency. Pt told to make sure to take at least TID and take at least 30 to 45 minutes before her meals. We will add cholestyramine once daily to help bulk up stools. She was instructed to continue to avoid dairy products and avoid other foods that exacerbate her symptoms. Assessment & Plan (04/26/2020 1:53 PM CDT): Pt has had issues for last 4 years. She says her symptoms are exacerbated by dairy products, fast food/greasy foods, and sweets. She says she often has urgent BM shortly after eating about twice daily. Usually very loose to watery diarrhea. She gets abdominal pain prior to BM that subsides after BM and just has mild soreness in abdomen that can last an hour or two after BM's. Suggestive of IBS-D. Pt was previously on dicyclomine but was told to only take once daily and first thing in the morning. Will have her use dicyclomine 10mg about 30 to 45 minutes before each meal. She can take the fourth dose prn if she has symptoms later in the day. We had a long discussion about diet and IBS. Instructed her to keep a food journal and track what foods are exacerbating symptoms. Instructed to avoid those that she knows can cause her symptoms including dairy products, sweets, and fast food. She takes a probiotics sometimes. Instructed to take this daily. Assessment & Plan (04/15/2020 4:22 PM CDT): H/O IBS, trial of Levsin. Referred to GI. Assessment & Plan (12/14/2019 1:33 PM OPERATIONS RESEARCH DIRECTOR): Clinically improved, continue current meds. Non-seasonal allergic rhinitis 12/14/2019 Assessment & Plan (10/05/2024 5:26 PM OPERATIONS RESEARCH DIRECTOR): -chronic, not at goal -currently uses Carrie which she was not seem to be helping as much -patient reports she has previously used a nose spray -reports worsening of allergies during weather changes -patient reports she is currently experiencing ear fullness which he thinks may be related to her allergies -azelastine nasal spray prescribed -continue current treatment plan Assessment & Plan (11/22/2021 2:41 PM OPERATIONS RESEARCH DIRECTOR): Asymptomatic. Stable. Continue current prescription medications. Assessment & Plan (12/14/2019 1:33 PM OPERATIONS RESEARCH DIRECTOR): Re-start claritin, continue flonase, use as directed. Nicotine vapor product user 12/14/2019 Assessment & Plan (10/05/2024 5:27 PM OPERATIONS RESEARCH DIRECTOR): Tobacco Use: High Risk (10/05/2024) Patient History Smoking Tobacco Use: Every Day Smokeless Tobacco Use: Never Passive Exposure: Not on file -stable, not at goal -patient reports they currently vapes daily daily -patient reports she has been able to cut back on how much she is vaping daily -patient educated on benefits of smoking cessation -encouraged patient to utilize resources such as 4-353-EACR-YES -continue current treatment plan -total time spent on tobacco cessation education 3 minutes Assessment & Plan (11/22/2021 2:41 PM OPERATIONS RESEARCH DIRECTOR): Advised patient to quit smoking. Assessment & Plan (12/14/2019 1:37 PM OPERATIONS RESEARCH DIRECTOR): Advised patient to quit smoking. Personal history of tobacco use, presenting hazards to health 12/14/2019 Dependent edema 12/14/2019 Assessment & Plan (07/03/2024 6:58 AM CDT): -new complaint, subacute -patient reports she has been dealing with swelling in her bilateral lower legs for several weeks now -previous history of this issue -patient reports she wears compression stockings and tries to elevate her legs as much as possible -encourage patient to continue those interventions, but consider obtaining new compression stockings -Lasix 20 mg daily prescribed for 14 days -BMP ordered to be evaluated in one-week -follow up at next scheduled appointment on 07/13 Assessment & Plan (11/22/2021 2:41 PM OPERATIONS RESEARCH DIRECTOR): Clinically improved, continue current prescription medications. Assessment & Plan (09/19/2021 1:29 PM CDT): Trial of furosemide. Labs ordered. Elevate feet when possible. Low-sodium diet recommended. PTSD (post-traumatic stress disorder) 12/14/2019 Assessment & Plan (02/06/2023 1:26 PM OPERATIONS RESEARCH DIRECTOR): cotlatonyanue prozac 40 mg - seems she is on sertraline 50 mg as well? Follows [facility] Assessment & Plan (12/14/2019 1:35 PM OPERATIONS RESEARCH DIRECTOR): New start sertraline. Encouraged f/u at [facility]. Chronic right shoulder pain 12/14/2019 Assessment & Plan (12/14/2019 1:36 PM OPERATIONS RESEARCH DIRECTOR): Will not refill Tramadol, patient previously on Tramadol. Referred to Ortho for further eval/mgmt. May use OTC pain reliever of choice. Psychophysiological insomnia 12/14/2019 Assessment & Plan (03/26/2024 2:56 PM CDT): - Chronic condition, not at goal - Difficulty with sleep initiation - Following with psychiatry at [facility] - Has known condition of anxiety, depression, PTSD, bipolar disorder - Currently on melatonin 5 mg OTC and Seroquel 25 mg qhs(states she forgets to take it at time) but it does work when she uses it - continue current management Assessment & Plan (02/06/2023 1:19 PM OPERATIONS RESEARCH DIRECTOR): Following sleep medicine Continue seroquel 25 mg qhs Morbid obesity with BMI of 50.0-59.9, adult 12/02 Assessment & Plan (11/17/2024 3:12 PM OPERATIONS RESEARCH DIRECTOR): Wt Readings from Last 3 Encounters: 11/17/24 (!) 166.9 kg (368 lb) 11/04/24 (!) 167.4 kg (369 lb) 10/14/24 (!) 174.6 kg (385 lb) Body mass index is 54.31 kg/m . -Stable, not at goal of <30 bmi -Discussed recommendations for exercise at least 30 minutes moderate to vigorous exercise as tolerated most days of the week. (minimum 150 minutes weekly) -Discussed importance of well-balanced diet -patient currently takes Trulicity 3 mg weekly which she states seemed to be helping her a good amount with weight loss -patient reports she has been trying to make lifestyle modifications to help lose weight including increasing exercise -continue Trulicity 3 mg weekly -continue current treatment plan Assessment & Plan (11/04/2024 2:52 PM OPERATIONS RESEARCH DIRECTOR): -chronic, improving, but not at goal goal BMI <30 Healthy, high-protein, lower carbohydrate, lower fat lifestyle and exercise for 150min/week recommended -Continue on Trulicity 3 mg weekly -Keep scheduled follow up with Estee Hicks NP in 2 weeks Assessment & Plan (10/05/2024 5:24 PM OPERATIONS RESEARCH DIRECTOR): Wt Readings from Last 3 Encounters: 10/05/24 (!) 175 kg (385 lb 12.8 oz) 08/12/24 (!) 182.3 kg (402 lb) 07/02/24 (!) 185.8 kg (409 lb 9.6 oz) Body mass index is 56.95 kg/m . -Stable, not at goal of <30 bmi -Discussed recommendations for exercise at least 30 minutes moderate to vigorous exercise as tolerated most days of the week. (minimum 150 minutes weekly) -Discussed importance of well-balanced diet -patient currently takes Trulicity 1.5 mg weekly which he states seemed to be helping her a good amount with weight loss, but does still endorse feeling an appetite -patient reports she has been trying to make lifestyle modifications to help lose weight including increasing exercise -increase Trulicity 3 mg weekly -follow up in 4 weeks for re-evaluation Assessment & Plan (08/24/2024 12:02 AM CDT): Wt Readings from Last 3 Encounters: 08/12/24 (!) 182.3 kg (402 lb) 07/02/24 (!) 185.8 kg (409 lb 9.6 oz) 06/08/24 (!) 187.8 kg (414 lb) Body mass index is 59.34 kg/m . -Stable, not at goal of <30 bmi with small improvement with medication assistance -Discussed recommendations for exercise at least 30 minutes moderate to vigorous exercise as tolerated most days of the week. (minimum 150 minutes weekly) -Discussed importance of well-balanced diet -patient reports she has been trying to make lifestyle modifications to help lose weight -recently started on Trulicity for Obesity and pre-diabetes, increasing dose from 0.75 to 1.5 mg weekly injection, new script sent in Assessment & Plan (07/03/2024 6:48 AM CDT): Wt Readings from Last 3 Encounters: 07/02/24 (!) 185.8 kg (409 lb 9.6 oz) 06/08/24 (!) 187.8 kg (414 lb) 03/26/24 (!) 189.7 kg (418 lb 3.2 oz) Body mass index is 60.46 kg/m . -Stable, not at goal of <30 bmi -Discussed recommendations for exercise at least 30 minutes moderate to vigorous exercise as tolerated most days of the week. (minimum 150 minutes weekly) -Discussed importance of well-balanced diet -patient reports she has been trying to make lifestyle modifications to help lose weight Assessment & Plan (04/11/2024 10:37 PM CDT): Wt Readings from Last 3 Encounters: 03/26/24 (!) 189.7 kg (418 lb 3.2 oz) 03/12/24 (!) 192.5 kg (424 lb 6.4 oz) 12/26/23 (!) 188.2 kg (415 lb) Body mass index is 61.73 kg/m . - chronic condition, not at goal - BMI Follow-up includes: nutrition counseling, exercise counseling and education provided - Recommend to exercise at least 30 minutes moderate to vigorous exercise most days of the week. (minimum 150 minutes weekly) - co-morbidities - PCOS, prediabetes - she expressed interest starting medications such as Ozempic but are state insurance does not cover weight loss medications. - patient is going to focus on healthy lifestyle, diet changes and physical activity Assessment & Plan (02/06/2023 1:19 PM OPERATIONS RESEARCH DIRECTOR): Wt Readings from Last 3 Encounters: 02/06/23 (!) 183.9 kg (405 lb 8 oz) 02/04/23 (!) 184.2 kg (406 lb) 12/27/22 (!) 180.5 kg (398 lb) BMI Readings from Last 3 Encounters: 02/06/23 59.88 kg/m 02/04/23 59.93 kg/m 12/27/22 58.75 kg/m Not at goal of bmi <30 Continue diet and exercise BMI Follow-up includes: nutrition counseling and exercise counseling. Assessment & Plan (11/07/2022 12:48 PM OPERATIONS RESEARCH DIRECTOR): Wt Readings from Last 3 Encounters: 11/07/22 (!) 178.7 kg (394 lb) 10/08/22 (!) 176.7 kg (389 lb 8 oz) 07/27/22 (!) 181.4 kg (400 lb) BMI Readings from Last 3 Encounters: 11/07/22 58.16 kg/m 10/08/22 57.52 kg/m 07/27/22 59.07 kg/m Not at goal of bmi <30 Continue diet and exercise BMI Follow-up includes: nutrition counseling and exercise counseling. Assessment & Plan (09/19/2021 1:29 PM CDT): Weight reduction, daily exercise and dietary modifications recommended. Assessment & Plan (04/26/2020 1:56 PM CDT): Encouraged weight loss. We discussed her diet at length. Instructed to avoid dairy, fast food (if she goes, pick smart), heavy/sugary foods and sodas. Pt says she usually drinks a soda a day and sometimes sports drinks. We discussed doing water and can do tea with small amount of sugar or stevia. Assessment & Plan (04/15/2020 4:24 PM CDT): Weight reduction, daily exercise and dietary modifications recommended. Assessment & Plan (12/14/2019 1:38 PM OPERATIONS RESEARCH DIRECTOR): Improving. Encouraged patient to decrease weight, increase daily exercise, and modify diet. Resolved Problems Problem Noted Date Diagnosed Date Resolved Date Depressive disorder 07/02/2024 07/02/20 Upper respiratory infection 07/02/2024 07/03/2024 Pre-diabetes 03/26/2024 04/30/2025 Assessment & Plan (11/17/2024 8:42 PM OPERATIONS RESEARCH DIRECTOR): Lab Results Component Value Date HGBA1C 6.0 11/17/2024 -chronic, stable -patient currently takes Trulicity 3 mg weekly, metformin 500 mg daily -patient reports checking blood sugar regularly at home -reiterated importance of diabetic foot and eye exams -most recent hemoglobin A1c shown above -will recheck lab work at next visit -continue current treatment plan Assessment & Plan (10/05/2024 5:23 PM OPERATIONS RESEARCH DIRECTOR): Lab Results Component Value Date HGBA1C 6.0 08/12/2024 -chronic, stable -patient currently takes metformin 500 mg daily, Trulicity 1.5 mg weekly -patient reports checking blood sugar regularly at home which seemed to have been doing better since starting her Trulicity -reiterated importance of diabetic foot and eye exams -most recent hemoglobin A1c shown above -will recheck lab work at next visit -increase Trulicity 3 mg weekly for better glycemic control and weight loss -continue current treatment plan Assessment & Plan (08/24/2024 12:02 AM CDT): Lab Results Component Value Date HGBA1C 6.0 08/12/2024 HGBA1C 6.1 (H) 04/08/2024 HGBA1C 6.1 (H) 03/05/2023 Lab Results Component Value Date LDLCALC 128 04/08/2024 CREATININE 0.63 04/08/2024 -chronic, improved -patient currently takes metformin 500 mg daily and recentlt was started on Trulicity 0.75 mg weekly --> increase to 1.5 mg weekly injections, new script provided -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 who checked her hemoglobin A1c and it was 6.4 -patient reports she would like to obtain a glucometer to begin checking her blood sugars at home regularly -most recent hemoglobin A1c in epic shown above -will recheck lab work in 3 months -continue current treatment plan Assessment & Plan (07/03/2024 6:53 AM CDT): Lab Results Component Value Date HGBA1C 6.1 (H) 04/08/2024 -chronic, worsened -patient currently takes metformin 500 mg daily -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 who checked her hemoglobin A1c and it was 6.4 -patient reports she would like to obtain a glucometer to begin checking her blood sugars at home regularly -most recent hemoglobin A1c in epic shown above -patient expressed interest in starting another medication to help best control her hemoglobin A1c, she states she checked with her insurance and they cover Trulicity -blood sugar monitor and supplies ordered -Trulicity 0.75 mg weekly prescribed -will recheck lab work in 3 months -continue current treatment plan Assessment & Plan (04/11/2024 10:37 PM CDT): - chronic condition, worse - onset around 11/2021 - has known PCOS - currently on Metformin XR 500 mg daily - states at times makes her feel nauseous - reports family history of diabetes in her father and sister Lab Results Component Value Date HGBA1C 6.1 (H) 03/05/2023 HGBA1C 5.8 (H) 11/22/2021 HGBA1C 5.5 12/14/2019 Lab Results Component Value Date LDLCALC 100 03/05/2023 CREATININE 0.69 03/05/2023 BMI 60.0-69.9, adult 08/11/2023 024 Assessment & Plan (08/11/2023 5:30 PM CDT): BMI Follow-up includes: education provided. Sleep disturbance 12/30/2022 03/26/2024 Assessment & Plan (02/06/2023 1:19 PM OPERATIONS RESEARCH DIRECTOR): Following with sleep medicine - continue seroquel [facility] Assessment & Plan (12/30/2022 9:33 AM OPERATIONS RESEARCH DIRECTOR): Referred to Sleep Medicine for further eval/mgmt. Acute bacterial sinusitis 12/30/2022 Overview (12/30/2022): Continue Flonase and Zyrtec daily. May use nasal saline washes. Referred to ENT. Assessment & Plan (01/28/2025 10:35 AM OPERATIONS RESEARCH DIRECTOR): History and exam consistent with acute bacterial sinusitis with >10 days of symptoms. Mild improvement with course of Augmentin, however missed multiple doses. Continues to have sinus tenderness and purulent drainage. -Discussed importance of completing antibiotic course. -Will send for course of doxycycline 100 mg bid x10 days -Continue Flonase, Astelin, and Zyrtec -If no improvement, consider CT of sinuses vs referral to ENT. Rectal pain 01/16/2022 08/11/2023 Rectal bleeding 01/16/2022 08/11/2023 Change in bowel habits 01/16/202208/11 Bilateral lower abdominal cramping 08/31/2020 09/12/2021 Assessment & Plan (08/31/2020 2:22 PM CDT): Occurs occasionally but overall doing much better on dicyclomine BID. Continue this medication. BMI 50.0-59.9, adult (CMS/[facility]) 04/26/2020 09/12/2021 Heartburn 04/26/2020 09/12/2021 Assessment & Plan (06/29/2020 2:51 PM CDT): Pt switched from ranitidine to famotidine at last appointment. She says this medication is not working to control symptoms. She is getting heartburn almost daily. Stop famotidine and start omeprazole 20mg daily. Assessment & Plan (04/26/2020 1:55 PM CDT): Occasionally. Used to use ranitidine but this was recently pulled from the market. Advised to try TUMS prn. If this doesn't help, can use OTC famotidine 1-2 times daily prn for symptoms. Generalized abdominal pain 04/14/2020 1 Assessment & Plan (06/29/2020 2:50 PM CDT): Abdominal cramping correlated with BM's. She says dicyclomine is helping. She doesn't get as often and they are milder. Pt only taking dicyclomine twice daily. Advised to increase to TID and make sure to take prior to meals (at least 30 minutes). Assessment & Plan (04/26/2020 1:54 PM CDT): Feels rumbling and cramping across abdomen prior to BM. Once she has a BM, this pain goes away but then feels some soreness for a little while after the BM. Assessment & Plan (04/15/2020 4:22 PM CDT): Encouraged f/u with UNDERGROUND UTILITY LOCATOR arpit abd pain is assoc. With menses. Labs ordered. Blood in urine secondary to current menses. DENG (dyspnea on exertion) 12/14/2019 Assessment & Plan (12/14/2019 1:37 PM OPERATIONS RESEARCH DIRECTOR): Reports worse with exertion. Will follow. Consider PFTs if no improvement with continued weight loss. Was prescribed an albuterol inhaler for the first time in 2019 by her previous PCP, still uses it occasionally. Reports that it helps. Encounters Date Type Department Care Team Description 07/22/2025 Telephone [facility] at [address] [phone] Claudine Mandujano MD Med Refill 07/12/2025 Results Follow-Up [facility] at [address] [phone] Claudine Mandujano MD CBC with auto differential, Comprehensive metabolic panel, Lipid panel, Additional followed-up results: 5 07/08/2025 2:20 PM CDT Lab [facility] [address] [place] [address] Encounter for annual physical examination excluding gynecological examination in a patient older than 17 years; Tuberculosis screening 07/08/2025 Telephone [facility] at [address] [phone] Claudine Mandujano MD Test Results; Call Back 06/30/2025 Telephone [facility] at [address] [phone] Claudine Mandujano MD Medical Question/Miscellaneous 06/29/2025 10:00 AM CDT Office Visit [facility] at [address] [phone] Claudine Mandujano MD Tuberculosis screening (Primary Dx); Encounter for annual physical examination excluding gynecological examination in a patient older than 17 years; Need for vaccination; Type 2 diabetes mellitus with hyperosmolarity without coma, without long-term current use of insulin (HCC) 06/23/2025 Telephone [facility] at [address] [phone] August Thomas MD 06/16/2025 Telephone [facility] Virtual Care [address] [place] [phone] Solo Aishwarya Med Refill 06/16/2025 Orders Only [address] [phone] Debbie Pinto NP Morbid obesity with BMI of 50.0-59.9, adult (HCC) from Last 3 Months Immunizations Immunization Administration Dates Next Due DTaP 03/24/1990 Hep B, Adolescent or Pediatric 09/20/1998 Hep B, Unspecified 03/01/2003,03/09/1999 HiB 03/01/2003,03/09/1999 IPV 04/23/1993,03/24/1990 Influenza, Quadrivalent, Spl it, Intramuscular 09/01/2015 Influenza, Quadrivalent, Spl it, Preservative Free, Intramuscular 11/07/2022,09/12/2021,08/28/2018,09/12 Influenza, Unspecified 01/28/2025(Deferr ed: Patient Refused),11/17/2024(Deferred: Patient Refused),10/05/2024(Deferred: Patient Refused),02/28/2024(Deferred: Patient Refused),09/01/2023(Deferred: Patient Refused),09/01/2023(Deferred: Patient Refused),09/21/2019,11/05/2018, 017 MMR 05/11/1994,08/21/1993 PPD TEST 05/26/2019,05/08/2019 Pfizer SARS-CoV-2 Monovalent Vaccination (12+ Yrs) PURPLE 05/06/2021,04/14/2021 Tdap 06/29/2025,03/22/2015 Surgical History Surgery Date Site/Laterality Comments COLONOSCOPY 02/19/2022 Medical History Medical History Date Comments Anxiety Depression Irritable bowel syndrome Chronic diarrhea Motion sickness Family History Medical History Relation Name Comments Dementia Mother Relation Name Status Comments Mother Social History Tobacco Use Types Packs/Day Years Used Date Smoking Tobacco: Every Day Cigarettes E-cigarettes Vaping Smokeless Tobacco: Never Tobacco Cessation:Ready to Q uit: No; Counseling Given: Yes Alcohol Use Standard Drinks/Week Comments Yes 0 (1 standard drink = 0.6 oz pur e alcohol) AUDIT-C Answer Date Recorded Q1: How often do you have a drink containing alcohol? Never 06/29/2025 Q2: How many drinks containi ng alcohol do you have on a typical day when you are drinking? Patient does not drink Q3: How often do you have si x or more drinks on one occasion? Never 06/29/2025 PHQ-2 Answer Date Recorded PHQ-2 Total Score (If total score is 3 or more points, staff should administer the PHQ-9) 0 06/29/2025 Personal Safety Answer Date Recorded Have you ever been in or are you currently in a harmful physical or emotional relationship or is someone making you feel afraid or unsafe? Denies 12/26/2023 Comments No Sex and Gender Information Value Date Recorded Sex Assigned at Not on file Legal Sex Female 5:42 PM OPERATIONS RESEARCH DIRECTOR Gender Identity Not on file Sexual Orientation Not on file Obstetrics History Last Filed Vital Signs Vital Sign Reading Time Taken Comments Blood Pressure 124/72 06/29/2025 10:28 AM CDT Pulse 92 06/29/2025 10:28 AM CDT Temperature 37.1 C (98.7 F) 01/28/2025 8:56 AM OPERATIONS RESEARCH DIRECTOR Respiratory Rate 18 06/29/2025 10:28 AM CDT Oxygen Saturation 94% 06/29/2025 10:28 AM CDT Inhaled Oxygen Concentration - - Weight 148 kg (326 lb 3.2 oz) 06/29/2025 10:28 A M CDT Height 175.3 cm (5' 9.02) 06/29/2025 10:28 AM C DT Body Mass Index 48.15 06/29/2025 10:28 AM CDT Plan of Treatment Health Maintenance Due Date Last Done Comments Dilated Eye Exam 1989 Foot Exam 1989 Pneumococcal vaccine <65 (1 of 2 - PCV) 2008 HPV Vaccines (1 - 3-dose SCD M series) 2016 Cervical Cancer Screening 01/21/2020 01/21/2019 Covid-19 Vaccine (4 - 2024-2 6 season) 2025 04/19/2022, 05/06/2021, 04/14/2021 Influenza Vaccine (#1) 2025 , 09/12/2021, 09/21/2019, Additional history exists Hemoglobin A1C 12/30/2025 06/29/2025, 11/01, 08/12/2024, Additional history exists Depression Screening 06/29/2026 06/29/2025, 01/28/2025, 11/17/2024, Additional history exists Regular Well Visit/Exam 18-64 06/29/2026, 03/26/2024, 11/22/2021, Additional history exists Albumin Creatinine Ratio, Urine 07/08/2026 Lipid Panel 07/08/2026 07/08/2025, 05/0 07/2024, 03/05/2023, Additional history exists eGFR 07/08/2026 07/08/2025, 05/0 07/2024, 03/05/2023, Additional history exists DTaP/Tdap/Td Vaccine (4 - Td or Tdap) 06/29/2035 06/29/2025, 03/22/2015, 03/24/1990 Hepatitis B Screening Completed 03/01/2003 , 03/09/1999, 09/20/1998 Hepatitis C Screening Completed 11/22/2021 Varicella Vaccines Discontinued Procedures Procedure Name Priority Date/Time Associated Diagnosis Comments EGFR Routine 07/08/2025 2:35 PM CDT Encounter for annual physical examination excluding gynecological examination in a patient older than 17 years DIFFERENTIAL AUTO Routine 07/08/2025 2:3 5 PM CDT Encounter for annual physical examination excluding gynecological examination in a patient older than 17 years TB TEST, QUANTIFERON GOLD Routine 07/08/2025 2:35 PM CDT Tuberculosis screening ALBUMIN CREATININE RATIO, URINE Routine 07/08/2025 2:35 PM CDT Encounter for annual physical examination excluding gynecological examination in a patient older than 17 years VITAMIN D 25 HYDROXY Routine 07/08/2025 2:35 PM CDT Encounter for annual physical examination excluding gynecological examination in a patient older than 17 years LIPID PANEL Routine 07/08/2025 2:35 PM CDT Encounter for annual physical examination excluding gynecological examination in a patient older than 17 years COMPREHENSIVE METABOLIC PANEL Routine 07/08/2025 2:35 PM CDT Encounter for annual physical examination excluding gynecological examination in a patient older than 17 years CBC WITH AUTO DIFFERENTIAL Routine 07/08/2025 2:35 PM CDT Encounter for annual physical examination excluding gynecological examination in a patient older than 17 years POCT HEMOGLOBIN A1C Routine 06/29/2025 1 1:15 AM CDT Type 2 diabetes mellitus with hyperosmolarity without coma, without long-term current use of insulin (HCC) HEPATITIS C ANTIBODY Routine 11/22/2021 1:27 PM OPERATIONS RESEARCH DIRECTOR Encounter for hepatitis C screening test for low risk patient HM PAP SMEAR WITH HPV Routine 01/21/2019 from Last 3 Months or Most Recently Relevant to Health Maintenance Results * eGFR (07/08/2025 2:35 PM CDT) eGFR >90 >=60 mL/min/1. 73 m2 Comment: Interpretive Data Reference Interval Normal >/= 90 mL/min/1.73m2 Mildly decreased* 60 - 89 mL/min/1.73m2 Mildly to moderately decreased 45 - 59 mL/min/1.73m2 Moderately to severely decreased 30 - 44 mL/min/1.73m2 Severely decreased 15 - 29 mL/min/1.73m2 Kidney Failure < 15 mL/min/1.73m2 *Relative to young adult level Estimated glomerular filtration rate is determined by the 2020 CKD-EPI equation recommended by the National Kidney Foundation (A Unifying Approach to GFR Estimation: Recommendations of the NKF-ASK Task Force on Reassessing the Inclusion of Race in Diagnosing Kidney Disease, JASN 2020). The CKD-EPI equation should not be used for patients with unstable renal function and has not been validated in children and those over 70. Current interpretive data was last reviewed 2021. Blood 07/08/2025 2:35 PM CDT 07/08/2025 3:08 PM CDT us Claudine Mandujano MD LAB BLOOD ORDERABLES Katie owens Result [facility] ([place]) [address] [facility] Department [place] [address] * Differential, auto (07/08/2025 2:35 PM CDT) Neutrophil abs 2.35 1.50 - 6.50 K/cumm Imm gran abs 0.01 0.00 - 0.10 K/cumm [facility] ([place]) Lymphocyte abs 2.03 0.80 - 3.30 K/cumm [facility] ([place]) Monocyte abs 0.26 0.20 - 0.80 K/cumm [facility] ([place]) Eosinophil abs 0.24 0.00 - 0.50 K/cumm [facility] ([place]) Basophil abs 0.07 0.00 - 0.10 K/cumm [facility] ([place]) Neutrophil pct 47.5 % [facility] ([place]) Comment: Interpretive Data Percent cell count reference ranges are not reported, since discordance with absolute values may lead to misinterpretation of CBC data. Current Interpretive Data was last revised on 2018. Imm gran pct 0.2 % [facility] ([place]) Comment: Interpretive Data Percent cell count reference ranges are not reported, since discordance with absolute values may lead to misinterpretation of CBC data. Current Interpretive Data was last revised on 2018. Lymphocyte pct 40.9 % [facility] ([place]) Comment: Interpretive Data Percent cell count reference ranges are not reported, since discordance with absolute values may lead to misinterpretation of CBC data. Current Interpretive Data was last revised on 2018. Monocyte pct 5.2 % [facility] ([place]) Comment: Interpretive Data Percent cell count reference ranges are not reported, since discordance with absolute values may lead to misinterpretation of CBC data. Current Interpretive Data was last revised on 2018. Eosinophil pct 4.8 % [facility] ([place]) Comment: Interpretive Data Percent cell count reference ranges are not reported, since discordance with absolute values may lead to misinterpretation of CBC data. Current Interpretive Data was last revised on 2018. Basophil pct 1.4 % [facility] ([place]) Comment: Interpretive Data Percent cell count reference ranges are not reported, since discordance with absolute values may lead to misinterpretation of CBC data. Current Interpretive Data was last revised on 2018. Blood 07/08/2025 2:35 PM CDT 07/08/2025 3:08 PM CDT Claudine Mandujano MD LAB BLOOD ORDERABLES Katie l Result [facility] ([place]) [address] [facility] Department [place] [address] * TB test, quantiferon gold (07/08/2025 2:35 PM CDT) [facility] Quantiferon TB Gold Negative Negative [facility] Comment: No interferon-gamma response to M. tuberculosis antigens was detected. Latent infection with M. tuberculosis is unlikely. A single negative result does not exclude infection with M. tuberculosis. In patients at high risk for M.tuberculosis infection, a second test should be considered in accordance with the 2017 ATS/IDSA/CDC Clinical Practice Guidelines for Diagnosis of Tuberculosis in Adults and Children [Lewinsohn DM et. al. Clin. Infect. Dis. 2017;64(2):111-115]. The reference range for the 'TB1 Ag minus Nil Result' and 'TB2 Ag minus Nil Result' is an Interferon-gamma level <0.35 IU/mL. TB-Nil 0.01 IUnits/mL [facility] ([place]) TB2-Nil 0.01 IUnits/mL [facility] ([place]) Mitogen-Nil 9.96 IUnits/mL [facility] ([place]) NIL 0.04 IUnits/mL [facility] ([place]) Comment: Test Performed by: [facility] [address] [place] [address] Appellate Law Clerk: Jacob Flores Ph.D.; CLIA# [id number] Blood 07/08/2025 2:35 PM CDT 07/08/2025 3:08 PM CDT us Claudine Mandujano MD LAB BLOOD ORDERABLES Katie owens Result [facility] ([place]) [address] [facility] Department [place] [address] [facility] * (ABNORMAL) CBC with auto differential (07/08/2025 2:35 PM CDT) WBC 4.96 3.80 - 9.90 K/cumm Hgb 14.3 11.9 - 15.5 g/dL [facility] ([place]) Hct 44.8 35.6 - 45.5 % [facility] ([place]) Plt 246 150 - 400 K/cumm [facility] ([place]) MPV 9.2 9.1 - 12.3 fL [facility] ([place]) RBC 5.31(H) 3.90 - 5.20 M/cumm [facility] ([place]) MCV 84.4 81.3 - 96.4 fL [facility] ([place]) MCH 26.9(L) 27.1 - 33.3 pg [facility] ([place]) MCHC 31.9(L) 32.3 - 35.7 g/dL [facility] ([place]) RDW CV 13.5 11.1 - 14.9 % [facility] ([place]) RDW SD 41.8 35.7 - 48.1 fL [facility] ([place]) NRBC abs 0.00 0.00 - 0.01 K/cumm [facility] ([place]) Blood 07/08/2025 2:35 PM CDT 07/08/2025 3:08 PM CDT Claudine Mandujano MD LAB BLOOD ORDERABLES Katie l Result Performing Organization Address [facility] Co de Phone Number [facility] ([place]) [address] [place] [address] * Albumin Creatinine Ratio, Urine (07/08/2025 2:35 PM CDT) Albumin Ur <12.0 mg/L Comment: Interpretive Data No reference range established. Current interpretive data was last revised 2019. Testing performed by: [facility], [address] [place] [address]., [id number] Creatinine Ur 227.9 mg/dL [facility] ([place]) Comment: Interpretive Data No reference range established. Current interpretive data was last revised 2019. Testing performed by: [facility], [address] [place] [address]., [id number] Albumin Creatinine Ratio, Ur <5 1 - 29 mg/g [facility] ([place]) Comment:Testing performed by : [facility], [address] [place] [address]., [id number] Urine 07/08/2025 2:35 PM CDT 07/08/2025 5:48 PM CDT Claudine Mandujano MD LAB URINE ORDERABLES Katie l Result Performing Organization Address [facility] Co de Phone Number [facility] 1 [facility] [place] [address] * (ABNORMAL) Vitamin D 25 hydroxy (07/08/2025 2:35 PM CDT) Vitamin D 25-OH 20(L) 30 - 80 ng/mL [facility] ([place]) Blood 07/08/2025 2:35 PM CDT 07/08/2025 3:08 PM CDT Claudine Mandujano MD LAB BLOOD ORDERABLES Katie owens Result [facility] ([place]) [address] [facility] Department [place] [address] * (ABNORMAL) Lipid panel (07/08/2025 2:35 PM CDT) Cholesterol 221(H) 30 - 199 mg/dL [facility] ([place]) Comment: Interpretive Data Ages < or = 19 years Acceptable: <170 mg/dL Borderline high: 170-199 mg/dL High: >or= 200 mg/dL Ages > or = 20 years Desirable: <200 mg/dL Borderline high: 200-239 mg/dL High: >or= 240 mg/dL Literature References: 1. Expert Panel on Integrated Guidelines for Cardiovascular Health and Risk Reduction in Children and Adolescents. Pediatrics 2011;128:S213 2. NCEP Expert Panel. Circulation 2004;110:227 Current Interpretive Data was last revised on 2018. Triglycerides 120 <=149 mg/dL [facility] ([place]) Comment: Interpretive Data Ages < or = 9 years Acceptable: <75 mg/dL Borderline high: 75-99 mg/dL High: >or= 100 mg/dL Ages 10 to 20 years Acceptable: <90 mg/dL Borderline high: 90-129 mg/dL High: >or= 130 mg/dL Ages > or = 20 years Desirable: <150 mg/dL Borderline high: 150-199 mg/dL High: 200-499 mg/dL Very high: >or= 499 mg/dL Literature References: 1. Expert Panel on Integrated Guidelines for Cardiovascular Health and Risk Reduction in Children and Adolescents. Pediatrics 2011;128:S213 2. NCEP Expert Panel. Circulation 2004;110:227 Current Interpretive Data was last revised on 2018. HDL 45 >=40 mg/dL [facility] ([place]) Comment: Interpretive Data Ages < or = 19 years Acceptable: >45 mg/dL Borderline low: 40-45 mg/dL Low: <40 mg/dL Ages > or = 20 years Desirable: >or= 60 mg/dL Low: <40 mg/dL Literature References: 1. Expert Panel on Integrated Guidelines for Cardiovascular Health and Risk Reduction in Children and Adolescents. Pediatrics 2011;128:S213 2. NCEP Expert Panel. Circulation 2004;110:227 Current Interpretive Data was last revised on 2018. LDL, calculated 154(H) <=129 mg/dL [facility] ([place]) Comment: Interpretive Data Ages < or = 19 years Acceptable: <110 mg/dL Borderline high: 110-129 mg/dL High: >or= 130 mg/dL Ages > or = 20 years Optimal: <100 mg/dL Near optimal: 100-129 mg/dL Borderline high: 130-159 mg/dL High: >160 mg/dL Calculated using the Ernie LDL-C estimating equation. This equation was implemented on 2024. Prior to this date LDL-C was estimated using the Friedewald equation. Literature References: 1. Expert Panel on Integrated Guidelines for Cardiovascular Health and Risk Reduction in Children and Adolescents. Pediatrics 2011;128:S213 2. NCEP Expert Panel. Circulation 2004;110:227 3. Ernie Marcus et al. TISHA Cardiol. 2019April 01;5(5):540-548. doi: [email or web address] Current Interpretive Data was last revised on 2024. Testing performed by: [place], [address] Non-HDL Cholesterol 176 mg/dL [facility] ([place]) Comment: Interpretive Data Ages < or = 19 years Acceptable: <120 mg/dL Borderline high: 120-144 mg/dL High: >145 mg/dL Ages > or = 20 years When triglycerides are >200 mg/dL, Non-HDL cholesterol is a secondary target of therapy with treatment goals that are 30 mg/dL greater than the LDL cholesterol target. Literature References: 1. Expert Panel on Integrated Guidelines for Cardiovascular Health and Risk Reduction in Children and Adolescents. Pediatrics 2011;128:S213 2. NCEP Expert Panel. Circulation 2004;110:227 Current Interpretive Data was last revised on 2018. Testing performed by: [place], [address] Chol/HDL ratio 5 [facility] ([place]) Comment:Testing performed by : [place], [address] Blood 07/08/2025 2:35 PM CDT 07/08/2025 3:08 PM CDT us Claudine Mandujano MD LAB BLOOD ORDERABLES Katie owens Result [facility] ([place]) 1 [facility] Department [place] [address] * (ABNORMAL) Comprehensive metabolic panel (07/08/2025 2:35 PM CDT) Sodium 142 135 - 145 mmol/L [facility] ([place]) Potassium, pl 3.8 3.3 - 4.9 mmol/L [facility] ([place]) Chloride 105 97 - 110 mmol/L [facility] ([place]) CO2 23 22 - 32 mmol/L [facility] ([place]) Anion gap 14 2 - 15 mmol/L [facility] ([place]) BUN 16 6 - 25 mg/dL [facility] ([place]) Creatinine 0.59(L) 0.60 - 1.10 mg/dL [facility] ([place]) Glucose 104 70 - 199 mg/dL [facility] ([place]) Comment: Interpretive Data Fasting glucose >/= 126 mg/dl is diagnostic for diabetes. Fasting is defined as no caloric intake for at least 8 hours. Fasting glucose between 100 mg/dl to 125 mg/dl is diagnostic of prediabetes. In a patient with classic symptoms of hyperglycemia or hyperglycemic crisis, a random glucose >/= 200 mg/dl is diagnostic for diabetes. In the absence of unequivocal hyperglycemia, results should be confirmed by repeat testing. The classification and Diagnosis of Diabetes Diabetes Care 2021; 46: S19-S40. Current interpretive data was last revised 2022. Calcium 9.8 8.5 - 10.3 mg/dL [facility] ([place]) Bilirubin, total 0.7 0.1 - 1.2 mg/dL [facility] ([place]) Protein, pl 6.8 6.5 - 8.5 g/dL [facility] ([place]) Albumin 4.1 3.5 - 5.0 g/dL [facility] ([place]) Alk phos 50 40 - 130 Units/L [facility] ([place]) ALT 33 7 - 45 Units/L [facility] ([place]) AST 26 10 - 45 Units/L [facility] ([place]) Blood 07/08/2025 2:35 PM CDT 07/08/2025 3:08 PM CDT Claudine Mandujano MD LAB BLOOD ORDERABLES Katie l Result Performing Organization Address [facility]/ZIP Co de Phone Number [facility] ([place]) 1 [facility] [place] [address] * POCT hemoglobin A1c (06/29/2025 11:15 AM CDT) Hemoglobin A1C, POC 5.2 4.0 - 5.6 % Capillary blood 06/29/2025 1 1:15 AM CDT Claudine Mandujano MD POINT OF CARE TEST ORDERA BLES Edited Result - Final * Hepatitis C antibody (11/22/2021 1:27 PM OPERATIONS RESEARCH DIRECTOR) Hep C Ab Nonreactive Nonreactive [facility] ([place]) Comment: Interpretive Data Nonreactive: Antibodies to HCV not detected. Does NOT exclude the possibility of recent exposure to HCV. Equivocal: Equivocal for HCV antibodies. Supplemental molecular testing will be automatically performed to determine infection status in accordance with current CDC screening recommendations. Reactive: Positive for HCV antibodies. This may represent current or past HCV infection. Supplemental molecular testing will be automatically performed to determine current infection status in accordance with current CDC screening recommendations. Interpretive data was last revised on 2020. Testing performed by: [facility], [address] [place] [address]., [id number] Blood 11/22/2021 1:27 PM OPERATIONS RESEARCH DIRECTOR 11/22/2021 6:41 PM OPERATIONS RESEARCH DIRECTOR Amelia Andrews DO LAB MICROBIOLOGY - GENERAL ORDERABLES Final Result [facility] ([place]) 1 [facility] [place] [address] * HM PAP SMEAR WITH HPV (01/21/2019) Pap smear Normal us Historical Provider HEALTH MAINTENANCE Final Result from Last 3 Months or Most Recently Relevant to Health Maintenance Insurance [facility] Care Teams Mathematician Relationship Specialty Start Date End Date Claudine Mandujano MD [address] [place] [address] PCP - General Family Medicine 06/29/25 Sandra Chavarria, CERTIFIED EXECUTIVE CHEF [address] [place] [address] [address] [place] [address] Nurse Practitioner Nurse Practitioner 12/14/19 Adalgisa De La Torre MD [address] [place] [address] [address] [place] [address] Surgeon Orthopedic Surgery 04/14/20 Jonnie Martins MD PhD [address] [place] [address] Consulting Physician Allergy and Immunology 03/26/24
== END 2025-08-30 11:15 | disposition home or self-care (01) ==
PROVIDERS: Emergency Provider Nurse Practitioner
DX: J06.9 Acute upper respiratory infection, unspecified (principal); I10 Essential (primary) hypertension; K21.9 Gastro-esophageal reflux disease without esophagitis; F41.9 Anxiety disorder, unspecified
CPT/HCPCS: 99213; G0463